=== PATIENT | male | born 1985 | race Caucasian/White ===

== ENCOUNTER 2022-12-13 12:12 | Emergency (ER) | payer OTHER, SELFPAY ==
[2022-12-13 12:16] VITALS: BP 121/67; PULSE 87; RESP 20; TEMP 36.3; O2SAT 100
[2022-12-13 12:32] VITALS: BP 128/77; PULSE 77; RESP 14; TEMP 36.5; O2SAT 97
[2022-12-13 13:26] LABS: Basophils Absolute Auto 0.1 K/mm3 (0.0-0.1); Basophils Percent Auto 0.7 % (0.2-1.2); Eosinophils Absolute Auto 0.2 K/mm3 (0-0.3); Hematocrit 46.6 % (42.0-52.0); Hemoglobin 15.7 g/dL (14.0-18.0); Immature Granulocyte Absolute 0.01 K/mm3 (0.00-0.031); Immature Granulocyte Percent A 0.1 % (0-0.5); Lymphocytes Absolute Auto 2.19 K/mm3 (0.9-3.2); Lymphocytes Percent Auto 27.1 % (18.3-44.2); Mean Corpuscular HGB Conc 33.7 g/dl (32-36); Mean Corpuscular Hemoglobin 29.5 pg (26-34); Mean Corpuscular Volume 87.4 fl (80-100); Mean Platelet Volume 11.9 fl (7.4-10.4); Monocytes Absolute Auto 0.5 K/mm3 (0.1-0.6); Monocytes Percent Auto 6.2 % (2.6-8.5); Neutrophils Absolute Auto 5.1 K/mm3 (1.3-6.7); Neutrophils Percent Auto 62.9 % (45.5-73.1); Platelet Count Result 160 k/mm3 (150-375); Red Blood Count 5.33 M/mm3 (4.6-6.20); Red Cell Distribution Width 12.3 % (11.5-14.5); White Blood Count 8.1 K/mm3 (4.5-10.0)
[2022-12-13 13:37] LABS: Alanine Aminotransferase 25 U/L (6-50); Albumin Level 4.1 g/dL (3.5-5.1); Alkaline Phosphatase 67 U/L (38-126); Anion Gap 5 mmol/L (8-16); Aspartate Amino Transferase 24 U/L (17-59); Bilirubin,Total 0.3 mg/dL (0.2-1.3); Blood Urea Nitrogen 15 mg/dL (9-20); Calcium 8.6 mg/dL (8.4-10.2); Carbon Dioxide 25 mmol/L (22-30); Chloride 105 mmol/L (98-107); Estimated CRCL calculation 92 ml/min; Estimated Glomerular Filt Rate > 60; Glucose 96 mg/dL (65-110); Potassium 4.1 mmol/L (3.4-5.0); Sodium 135 mmol/L (137-145)
[2022-12-13 13:39] LABS: Prothrombin Time 13.9 Seconds (11.1-14.7)
[2022-12-13 13:40] LABS: Partial Thromboplastin Time 27.4 SECONDS (22.3-36.8)
--- NOTE | 2022-12-13 13:42 | ED.GIBLEED ---
HPI - GI Bleed General Chief complaint: GI Bleed Stated complaint: blood in stool Time Seen by Provider: 12/13/22 13:15 Source: patient Limitations: no limitations History of Present Illness HPI Narrative: Patient is a 37-year-old male presents to the emergency department complaining of blood in the toilet bowl. Patient notes that this morning he woke up and had a bowel movement seem solid however when he looked down there was the appearance of a diluted bright red blood present within the water of the toilet bowl prompting him to come in to seek further evaluation. Patient notes that he is never seen a nuclear reactor engineer or had a colonoscopy in the past. Patient notes he has a history of this in the past in which she is experienced approximately 3 days of bright red blood in the toilet bowl each incident and the most recent event was approximate 4 months ago and has been experiencing this for about the past 2-1/2 years. Patient denies any significant use of NSAIDs or alcohol. Patient denies use of Pepto-Bismol or iron supplementation. Patient denies fever, emesis, dysuria, hematuria, cough, lightheadedness, chest pain, palpitations, shortness of breath, rash, diarrhea, constipation, recent injuries, recent illness, abdominal pain. Denies history of IBD, admits to having a cousin with IBD. Denies straining to defecate. Admits to staying hydrated with clear urine. Denies blood when wiping. Denies rectal pain. Notes he overall feels well. Denies rectal trauma. Related Data Allergies Allergy/AdvReac Type Severity Reaction Status Date / Time No Known Allergies Allergy Mild Verified 11/03/16 12:05 Exam Const: General: healthy appearing and no acute distress Nutritional Appearance: well nourished Orientation/consciousness: patient oriented x3 HENMT: Head: normal to inspection Mouth: Yes Normal oral and palatal mucosa present and Yes moist mucous membranes Throat: posterior oropharynx normal Eyes: Conjunctivae: conjunctivae normal Pupils: Equal, round and reactive pupils present Resp: Effort & Inspection: normal respiratory effort Auscultation: clear to auscultation bilaterally Cardio: Rate: regular rate Rhythm: regular rhythm GI: Inspection: non-distended GI Palp: Yes Soft to palpation, No Tenderness to palpation present (GI), No Guarding due to palpation present (GI), No Rigid due to palpation, No Hernia present, No Palpable mass present and No Rebound tenderness present Rectal Exam: normal sphincter tone and No hemorrhoids Other: no gross blood on digital rectal examination. No anal fissure. No palpable hemorrhoids or masses. Hemoccult positive. Skin: Rashes: no rashes Neuro: General: patient oriented x3 and no focal motor deficits Speech: normal speech Extrem: General: normal to inspection Psych: Mental Status: mental status grossly normal Affect: normal affect Course Vital Signs Vital signs: Vital Signs Temperature 97.3 F L 12/13/22 12:16 Pulse Rate 87 12/13/22 12:16 Respiratory Rate 20 12/13/22 12:16 Blood Pressure 121/67 12/13/22 12:16 Pulse Oximetry 100 12/13/22 12:16 Oxygen Delivery Room Air 12/13/22 12:16 Temperature 97.7 F 12/13/22 12:32 Pulse Rate 74 12/13/22 14:50 Respiratory Rate 20 12/13/22 14:50 Blood Pressure 120/76 12/13/22 14:50 Pulse Oximetry 97 12/13/22 14:50 Oxygen Delivery Room Air 12/13/22 12:32 Procedures Stool Hemoccult Stool hemoccult #1: Procedural Steps Taken: stool placed in appropriate test area, developer placed on stool and control areas and controls appropriately positive and negative Hemoccult result: positive MDM - GI Bleed MDM Narrative Medical decision making narrative: ?Patient is a 37-year-old male presents to the emergency department with the above complaint. Vital signs stable. Patient appears in no acute distress resting comfortably with significant other at bedside. Concern for blood in the toilet bowl w
[2022-12-13 13:56] LABS: Appearance Urine Clear (Clear); Bilirubin Urine Negative (Negative); Blood Urine Negative (Negative); Color Urine Yellow (Yellow); Glucose Urine UA Negative (Negative); Ketones Urine Negative (Negative); Leukocyte Esterase Ur Negative LEU/UL (Negative); Nitrate Urine Negative (Negative); Protein Urine Negative (Negative); Specific Grav Ur 1.011 (1.001-1.035); Urobilinogen Urine 0.2 mg/dL (<2.0)
[2022-12-13 14:04] LABS: Add Urine Microscopic? NO
[2022-12-13 14:50] VITALS: BP 120/76; PULSE 74; RESP 20; O2SAT 97
== END 2022-12-13 14:51 | disposition home or self-care (01) ==
PROVIDERS: Emergency Medicine; Emergency Provider Student in an Organized Health Care Education/Training Program; PCP Family Medicine
DX: K92.1 Melena (principal)
CPT/HCPCS: 36415; 80053; 81003; 85025; 85610; 85730; 86850; 86900; 86901; 99283

== ENCOUNTER 2023-02-01 01:57 | Day surgery (SDC) | payer OTHER, SELFPAY ==
[2023-01-25 12:44] VITALS: BMI 27.0
[2023-02-01 09:20] VITALS: BP 114/65; PULSE 79; RESP 18; TEMP 36.4; O2SAT 100; BMI 26.5
--- NOTE | 2023-02-01 09:31 | WPDHPUPDATE1 ---
History and Physical Update Update Date/Time: 02/01/23 09:31 History and Physical has been reviewed, including an updated exam of the patient. There are NO changes in the patient's condition. Risks, benefits, and alternatives have been discussed and questions answered. Patient agrees to proceed with procedure.
[2023-02-01] MEDS: LACTATED RINGERS 1,000 ML 150 ML IV CONT (09:32)
--- NOTE | 2023-02-01 09:33 | P.PNAN_ITS ---
Anes - Initial Pre Proc Eval Procedure: Operation Date: 02/01/23 10:30 Proposed Procedures p Colonoscopy - Rajiv Mohr MD Date/Time: 02/01/23 09:33 Surgeon: Rajiv Mohr MD Pre Op Diagnosis: Hemorrhage of anus/rectum, Abdominal Pain Patient Data Age: 37 Gender: M Height: 1.75 m Weight: 81.5 kg Last Vital Signs Temp 97.5 F L 02/01/23 09:20 Pulse 79 02/01/23 09:20 Resp 18 02/01/23 09:20 BP 114/65 02/01/23 09:20 Pulse Ox 100 02/01/23 09:20 O2 Del Method Room Air 02/01/23 09:20 Allergies Allergy/AdvReac Type Severity Reaction Status Date / Time No Known Allergies Allergy Mild Verified 01/25/23 12:45 Home Medications Medication Instructions Recorded Confirmed Type No Home Medications 01/03/23 01/25/23 History Patient hx anesthesia problems: none Family hx anesthesia problems: none Results Review: All pre-operative results and documents have been reviewed as part of the pre- operative evaluation. [facility] Past Medical History Medical History (Updated 01/03/23 @ 16:02 by NICOLE Conde) Bright red rectal bleeding Left sided abdominal pain Social History Social History Smoking packs per day: 0.5 Smoking cigarettes per day: 10.0 Years smoked: 24 Smoking pack-years: 12.00 Smoking status: Current every day smoker Tobacco type: cigarettes Alcohol intake: current Substance use: current Substance use type: marijuana and prescription drug Other substance usage details: DAILY MARIJUANA Living arrangements: with family Spiritual care concerns: No Anes - Eval Final PreProcedure Day of Procedure 02/01/23 09:33 Patient weight: normal Heart: regular rate and rhythm Lungs: clear to auscultation Airway: Mallampati scale class II Neurological: alert and oriented Last oral intake: >/= 8 hours ASA classification: II Emergent: no Anesthetic plan: proceed Anesthesia type and monitoring: general GIVS and standard monitoring Results Review: All pre-operative results and documents have been reviewed as part of the pre- operative evaluation. Informed Consent: The patient's anesthetic plan and its attendant risks and benefits were discussed with the patient/family/POA. Questions were solicited and answers provided to the satisfaction of the patient/family/POA.
[2023-02-01 09:57] VITALS: BP 114/77; PULSE 85; RESP 18; O2SAT 98
[2023-02-01 10:07] VITALS: BP 124/83; PULSE 67; RESP 23; O2SAT 99
[2023-02-01 10:17] VITALS: BP 123/91; PULSE 74; RESP 24; O2SAT 98
== END 2023-02-01 10:22 | disposition home or self-care (01) ==
PROVIDERS: PCP Family Medicine; Visit Provider Internal Medicine Gastroenterology
PROC: 0DJD8ZZ Inspection of Lower Intestinal Tract, Via Natural or Artificial Opening Endoscopic (ICD-10-PCS; CPT 45378; principal; 2023-02-01 10:30)
DX: K62.5 Hemorrhage of anus and rectum (principal); K64.8 Other hemorrhoids; F17.210 Nicotine dependence, cigarettes, uncomplicated; F12.90 Cannabis use, unspecified, uncomplicated
CPT/HCPCS: 45378; J2704; J7120

== ENCOUNTER 2023-12-29 11:17 | Emergency (ER) | payer SELFPAY ==
--- NOTE | ~2023-12-29 | CT_ITS ---
EXAMINATION: CT cervical spine wo con DATE: 12/29/2023 11:58 INDICATION: Neck pain. TECHNIQUE: Computed tomography (CT) of the cervical spine was performed without intravenous contrast. Automated exposure control and iterative reconstruction technique were employed. The dose-length pro duct was 495.09 mGy-cm. COMPARISON: None FINDINGS: There is 5 degrees dextrocurvature of cervical spine. Vertebral body heights are normal. In tervertebral disc heights are normal. The following disc levels are specifically discussed: C2-C3: There is mild bilateral uncovertebral joint osteoarthritis. There is mild bilateral facet join t osteoarthritis. There is no neural foraminal stenosis. There is no central canal stenosis. C3-C4: There is mild bilateral uncovertebral joint osteoarthritis. There is moderate bilateral facet joint osteoarthritis. There is no neural foraminal stenosis. There is no central canal stenosis. C4-C5: There is mild left uncovertebral joint osteoarthritis. There is mild bilateral facet joint ost eoarthritis. There is no neural foraminal stenosis. There is no central canal stenosis. C5-C6: There is no uncovertebral joint osteoarthritis. There is no facet joint osteoarthritis. There is no neural foraminal stenosis. There is no central canal stenosis. C6-C7: There is no uncovertebral joint osteoarthritis. There is mild left facet joint osteoarthritis. There is no neural foraminal stenosis. There is no central canal stenosis. C7-T1: There is no uncovertebral joint osteoarthritis. There is severe bilateral facet joint osteoart hritis. There is mild left neural foraminal stenosis. There is no central canal stenosis. IMPRESSION: 1. No fracture. 2. Mild cervical spondylosis. Reviewed, dictated and finalized at location A.
[2023-12-29 11:19] VITALS: BP 142/87; PULSE 75; RESP 18; TEMP 36.2; O2SAT 98
[2023-12-29 12:14] VITALS: BP 122/73; PULSE 70; RESP 18; O2SAT 99
[2023-12-29] MEDS: SODIUM CHLORIDE 0.9% IV 1,000 ML 999 ML IV CONT (12:14)
[2023-12-29] MEDS: diazePAM INJ (*CRX) 10 MG/2 ML SYRINGE 5 MG IV PUSH (12:15)
[2023-12-29] MEDS: KETOROLAC 30 MG/ML VIAL (*BKC) IV PUSH (12:15)
[2023-12-29 12:35] LABS: Basophils Absolute Auto 0.1 K/mm3 (0.0-0.1); Basophils Percent Auto 1.4 % (0.2-1.2); Eosinophils Absolute Auto 0.2 K/mm3 (0-0.3); Eosinophils Percent Auto 3.5 % (0-4.4); Hematocrit 44.3 % (42.0-52.0); Hemoglobin 15.4 g/dL (14.0-18.0); Immature Granulocyte Absolute 0.02 K/mm3 (0.00-0.031); Immature Granulocyte Percent A 0.3 % (0-0.5); Lymphocytes Absolute Auto 1.79 K/mm3 (0.9-3.2); Lymphocytes Percent Auto 27.5 % (18.3-44.2); Mean Corpuscular HGB Conc 34.8 g/dl (32-36); Mean Corpuscular Hemoglobin 28.8 pg (26-34); Mean Corpuscular Volume 82.8 fl (80-100); Monocytes Absolute Auto 0.5 K/mm3 (0.1-0.6); Monocytes Percent Auto 6.9 % (2.6-8.5); Neutrophils Absolute Auto 3.9 K/mm3 (1.3-6.7); Neutrophils Percent Auto 60.4 % (45.5-73.1); Platelet Count Result 198 k/mm3 (150-375); Red Blood Count 5.35 M/mm3 (4.6-6.20); Red Cell Distribution Width 11.9 % (11.5-14.5); White Blood Count 6.5 K/mm3 (4.5-10.0)
[2023-12-29 12:44] LABS: Anion Gap 10 mmol/L (4-12); Blood Urea Nitrogen 15 mg/dL (9-20); Carbon Dioxide 22 mmol/L (22-30); Chloride 105 mmol/L (98-107); Estimated CRCL calculation 92 ml/min; Estimated Glomerular Filt Rate > 60; Glucose 103 mg/dL (65-110); Potassium 4.1 mmol/L (3.4-5.0); Sodium 137 mmol/L (137-145)
--- NOTE | 2023-12-29 12:50 | ED.GENADULT ---
HPI - General Adult General Chief complaint: Neck Pain/Injury Stated complaint: neck pain Time Seen by Provider: 12/29/23 11:25 History of Present Illness HPI narrative: Patient is a 38-year-old male who presents ER with neck pain. He was lying in bed and was turning over when he heard a pop and developed severe pain in his right neck. It moves up towards his head. No numbness or weakness in the arms or legs. Has increased pain with moving his head. No alleviating factors. Reports that he has been doing a lot of painting at his home or last week. He is right arm dominant. Related Data Allergies Allergy/AdvReac Type Severity Reaction Status Date / Time No Known Allergies Allergy Mild Verified 12/29/23 12:00 Review of Systems Review of Systems: All systems reviewed & are unremarkable except as noted in HPI and below Constitutional: Constitutional: Reports no additional constitutional complaints Cardiovascular: Cardiovascular: Reports no additional cardiovascular complaints Respiratory: Respiratory: Reports no additional respiratory complaints Musculoskeletal: Musculoskeletal: Denies back pain, Denies arthralgias, Denies joint swelling and Reports muscle cramps Comments: Neck pain Neurologic: Reports system reviewed and no additional complaints, except as documented PMFSH Past Medical History Medical History (Updated 12/29/23 @ 13:51 by Juvenal Haley MD) Bright red rectal bleeding Left sided abdominal pain Surgical History Surgical History (Updated 12/29/23 @ 13:51 by Juvenal Haley MD) No pertinent past surgical history Social History Social History Smoking packs per day: 0.5 Smoking cigarettes per day: 10.0 Years smoked: 24 Smoking pack-years: 12.00 Smoking status: Current every day smoker Tobacco type: cigarettes Alcohol intake: current Substance use: current Substance use type: marijuana and prescription drug Other substance usage details: DAILY MARIJUANA Living arrangements: with family Spiritual care concerns: No Exam Narrative: GENERAL: Well-appearing, well-nourished, and in no acute distress. HEAD: Normocephalic, atraumatic. ENT: Mucous membranes moist. NECK: Supple. TTP right paraspinal musculature with spasm, no midline tenderness. CHEST: Clear to auscultation. No respiratory distress. HEART: Regular rate and rhythm. Normal peripheral pulses.. EXTREMITIES: Normal range of motion. No edema. SKIN: Warm, dry, no rash. NEURO: Alert and oriented x3. PSYCH: Normal mood and affect. Course Course Emergency Course: Pain improving with Valium and Toradol. Discussed CT imaging results that show no acute fracture or other significant abnormality. Discussed outpatient treatment with rest/ice/NSAIDs/muscle relaxant. Vital Signs Vital signs: Vital Signs Temperature 97.1 F L 12/29/23 11:19 Pulse Rate 75 12/29/23 11:19 Respiratory Rate 18 12/29/23 11:19 Blood Pressure 142/87 H 12/29/23 11:19 Pulse Oximetry 98 12/29/23 11:19 Oxygen Delivery Room Air 12/29/23 11:19 Temperature 97.1 F L 12/29/23 11:19 Pulse Rate 70 12/29/23 12:14 Respiratory Rate 18 12/29/23 12:14 Blood Pressure 122/73 12/29/23 12:14 Pulse Oximetry 99 12/29/23 12:14 Oxygen Delivery Room Air 12/29/23 11:19 Medical Decision Making Vital Signs Vital Signs: Vital Signs Temperature 97.1 F L 12/29/23 11:19 Pulse Rate 75 12/29/23 11:19 Respiratory Rate 18 12/29/23 11:19 Blood Pressure 142/87 H 12/29/23 11:19 Pulse Oximetry 98 12/29/23 11:19 Oxygen Delivery Room Air 12/29/23 11:19 Temperature 97.1 F L 12/29/23 11:19 Pulse Rate 70 12/29/23 12:14 Respiratory Rate 18 12/29/23 12:14 Blood Pressure 122/73 12/29/23 12:14 Pulse Oximetry 99 12/29/23 12:14 Oxygen Delivery Room Air 12/29/23 11:19 Lab Data 12/29/23 12:19 12/29/23
--- NOTE | 2023-12-29 13:58 | PC.NURSE ---
verified with michael Rivera to discharge patient at this time.
== END 2023-12-29 14:00 | disposition home or self-care (01) ==
PROVIDERS: Emergency Provider Emergency Medicine
DX: M62.830 Muscle spasm of back (principal); F17.210 Nicotine dependence, cigarettes, uncomplicated; M47.812 Spondylosis without myelopathy or radiculopathy, cervical region
CPT/HCPCS: 36415; 72125; 80048; 85025; 96361; 96374; 96375; 99284; J1885; J3360; J7030; L0140